=== PATIENT | male | born 1985 | race Two or more races ===

== ENCOUNTER 2019-08-08 22:58 | Emergency (ER) | payer MEDICAID, OTHER ==
[~2019-08-08] VITALS: Ht 188 cm; Wt 81.6 kg
[2019-08-08] MEDS ORDERED: HALOPERIDOL LACTATE INJ 5 MG/ML VIAL ONE (23:18)
[2019-08-08] MEDS ORDERED: LORAZEPAM INJ 2 MG/ML VIAL ONE (23:20)
--- NOTE | 2019-08-08 23:25 | NUR ---
BIBRA 878 FOR OVERDOSE ON METH AND HEROIN, TO ER BED 15 UNDER SUPERVISION, ORDERS RECEIVED AND CARRIED OUT
[2019-08-08] MEDS ORDERED: HALOPERIDOL LACTATE INJ 5 MG/ML VIAL IM ONE (23:30)
[2019-08-08] MEDS ORDERED: LORAZEPAM INJ 2 MG/ML VIAL IM ONE (23:30)
[2019-08-08 23:59] LABS: BASOPHILS # (AUTO) 0.1 /CMM (0.0-0.2); BASOPHILS % (AUTO) 0.4 % (0.0-2.0); HEMATOCRIT 30 % (39-51); HEMOGLOBIN 9.7 g/dL (13.5-17.5); LYMPHOCYTES # (AUTO) 1.1 /CMM (0.8-4.8); LYMPHOCYTES % (AUTO) 5.7 % (20.0-44.0); MEAN CORPUSCULAR HGB CONC 32 g/dl (31.0-36.0); MEAN CORPUSCULAR VOLUME 83 fL (80-96); MONOCYTES % (AUTO) 4.9 % (2.0-12.0); NEUTROPHILS # (AUTO) 17.1 /CMM (1.8-8.9); PLATELET COUNT (AUTO) 348 /CMM (150-450); RED BLOOD CELL COUNT(AUTO) 3.64 MIL/uL (4.5-6.0); WHITE BLOOD COUNT (AUTO) 19.2 K/uL (4.3-11.0)
[2019-08-09 00:08] LABS: CARBON DIOXIDE 25 mmol/L (21-32); CHLORIDE 104 mmol/L (98-107); CREATININE 1.5 mg/dL (0.6-1.3); GLUCOSE 123 mg/dL (74-106); POTASSIUM 3.5 mmol/L (3.5-5.1); SODIUM SERUM 140 mmol/L (136-145); UREA NITROGEN, BLOOD 13 mg/dL (7-18)
[2019-08-09 00:14] LABS: ACETAMINOPHEN < 2 ug/ml (10-30); ALANINE AMINOTRANSFERASE 112 U/L (12-78); ALBUMIN 2.2 g/dL (3.4-5.0); ALCOHOL, BLOOD < 3 mg/dL (0-0); ALKALINE PHOSPHATASE 111 U/L (46-116); ASPARTATE AMINOTRANSFERASE 94 U/L (15-37); BILIRUBIN,DIRECT 0.3 mg/dL (0.0-0.2); BILIRUBIN,TOTAL 0.7 mg/dL (0.2-1.0); SALICYLATE 0.7 mg/dL (2.8-20.0)
--- NOTE | 2019-08-09 01:54 | NUR ---
PT PLACED ON NASAL CANNULA AT 2L. TOLERATES O2 WELL. WILL CONTINUE TO MONITOR.
[2019-08-09] MEDS ORDERED: CEFTRIAXONE 1 G VIAL IM ONE (02:00)
[2019-08-09] MEDS ORDERED: LIDOCAINE 1% INJ 50 ML MDV IJ ONE (02:16)
[2019-08-09] MEDS ORDERED: CEFTRIAXONE 1 G VIAL ONE (02:17)
--- NOTE | 2019-08-09 02:36 | NUR ---
PT SLEEPING AND RESTING COMFORTABLY. NO ACUTE DISTRESS NOTED. WILL CONTINUE TO MONITOR. SITTER AT BEDSIDE
--- NOTE | 2019-08-09 05:00 | NUR ---
Patient is resting comfortably in bed with eyes closed. Easily aroused. VSS. on coninuous monitoring.
--- NOTE | 2019-08-09 07:36 | NUR ---
ASSESSED PT ON BED ASLEEP ON BED EASILY AROUSABLE, NOT IN RESPIRATORY DISTRESS, V/S STABLE, KEPT RESTED AND COMFORTABLE, WILL CONTINUE TO MONITOR.
[2019-08-09 12:36] VITALS: BP 133/68
--- NOTE | 2019-08-09 12:36 | NUR ---
PT AWAKE AMB WITHOUT DIFF . PT. VERBALIZED UNDERSTANDING OF AFTERCARE INSTRUCTIONS.Patient discharged to home in stable condition. Written and verbal after care instructions given. Patient verbalizes understanding of instruction.
== END 2019-08-09 12:37 | disposition home or self-care (01) ==
LOC: ER 23:00
DX: F15.129 Other stimulant abuse with intoxication, unspecified (principal); F11.10 Opioid abuse, uncomplicated; L98.9 Disorder of the skin and subcutaneous tissue, unspecified
CPT/HCPCS: 36415; 80048; 80076; 80307; 80329; 85025; 96372 ×3; 99285; G0480; J0696; J1630; J2060; J3490